=== PATIENT | female | born 1955 | race Caucasian/White ===

== ENCOUNTER 2018-10-04 08:52 | Emergency (ER) | payer OTHER ==
[2018-10-04] MEDS: BUPIVACAINE 0.25% (MPF) 10 ML 10 ML VIAL INJ (10:16)
[2018-10-04] MEDS: BUPIVACAINE 0.25%/EPI (SDV) 30 ML INJ INJ (10:16)
[2018-10-04 10:24] LABS: URINE BLOOD (Dip) POC Trace-intact (NEGATIVE); URINE GLUCOSE (Dip) POC Negative (NEGATIVE); URINE KETONES (Dip) POC Negative (NEGATIVE); URINE LEUKOCYTE EST (Dip) POC Trace (NEGATIVE); URINE NITRITE (Dip) POC Negative (NEGATIVE); URINE TOTAL PROTEIN POC Negative (NEGATIVE)
[2018-10-04 10:24] LABS: URINE PH (Dip) POC 6.5 (5.0-8.5)
== END 2018-10-04 11:07 | disposition home or self-care (01) ==
LOC: FTE 08:52
DX: M62.830 Muscle spasm of back (principal); R40.2412 Glasgow coma scale score 13-15, at arrival to emergency department
CPT/HCPCS: 20552; 81003; 99283-25